=== PATIENT | male | born 1990 | race Caucasian/White ===

== ENCOUNTER 2024-11-24 09:39 | Emergency (ER) | payer MEDICAID ==
[~2024-11-24] VITALS: Ht 172.7 cm; Wt 83.2 kg
[2024-11-24 10:03] VITALS: BP 130/79; PULSE 76; O2SAT 98
[2024-11-24] MEDS ORDERED: CYCL-394 PO (10:27)
--- NOTE | 2024-11-24 10:28 | Physician Documentation ---
History of Present Illness ~ Chief Complaint: Back Pain Stated Complaint: BACK PAIN Time Seen by MD: 09:44 HPI 34-year-old male presents to the ED with a complaint of low back pain without injury. States his pain is worse in the morning and has sciatica down the right side. He has any numbness tingling saddle anesthesia fevers or weakness Day of Onset: Nov 24, 2024 Medication Reconciliation Allergies: Uncoded Allergies: PCN (Allergy, Unknown, 11/24/24) Scheduled Cyclobenzaprine HCl (Cyclobenzaprine HCl), 1 TAB PO Q8H Review of Systems All Other Systems at this time: Reviewed and Negative ROS As stated above in the HPI, otherwise all systems are reviewed and negative. Physical Exam Physical Exam Vital Signs: Temperature: 97.8, Source: Temporal, Heart Rate: 76, Respiratory Rate: 18, BP: 130/79, Pulse Oximetry: 98, Weight: 83.180 Physical Exam General: Alert, no apparent distress. Respiratory: Lungs clear, no respiratory distress. Cardiovascular: Regular rate and rhythm, no murmurs. back: Tender to lumbar region via palpation Neurologic: Oriented x4. Psychiatric: Normal mood and affect. Skin: Normal color, warm and dry. No edema, no ecchymosis. Progress Results/Orders Results/Orders Orders - RAMOS FERGUSON SHAPING MACHINE OPERATOR Lumbar Spine Limited (11/24/24 10:28) Completed Orders - RAMOS FERGUSON SHAPING MACHINE OPERATOR Ketorolac Trometh 30mg/Ml Vial (Toradol (11/24/24 10:25) Lumbar Spine Limited (11/24/24 10:28) Medications Received in ER Medications (Trade) Dose Ordered Sig/Lana Route PRN Reason Start Time Stop Time Status Last Admin Dose Admin (Toradol inj. 30mg/ml) 30 mg ONCE ONCE IM 11/24/24 10:25 11/24/24 10:37 DC 11/24/24 10:59 30 MG Vital Signs 11/24/24 11/24/24 11/24/24 10:03 10:59 11:10 Temp 97.8 97.8 Pulse 76 Resp 18 16 B/P (MAP) 130/79 Pulse Ox 98 Medical Decision Making Findings Patient does not present with any acute injury I do suspect lumbar strain. Ac knowledges homelessness and socioeconomic deficiencies. I think it is prudent to give him a Toradol shot and advised him to follow up with the [facility]" for potential referral to physical therapy He is neurologically intact no signs of red flag symptoms Not appreciate any signs of acute fracture in his x-ray Differential Dx:Considerations: Include: AAA, Aortic dissection, Appendicitis, Bowel obstruction, Cholelithiasis, Cholangitis, DJD, Fracture, Hepatitis, HNP, Musculoskeletal pain, Pancreatitis, Pyelonephritis, Renal infarction, Strain, Urinary obstruction, Urolithiasis, Urinary tract infection, Other Departure Disposition: HOME / SELF CARE / HOMELESS Impression: Primary Impression: Strain of lumbar region Condition: Stable Discharge Instructions: Lumbosacral Strain Additional Instructions: You continue to have persistent back pain I recommend following up with the [facility] they can assist you with a referral to physical therapy if need be Referrals: NO PRIMARY CARE PROVIDER (PCP) Prescriptions Cyclobenzaprine HCl (Cyclobenzaprine HCl) 10 Mg Tablet 1 TAB PO Q8H for muscle spasms for 10 Days, #30 TAB Prov: RAMOS FERGUSON NP 11/24/24 Signature Scribe Signature: v Attestation: Scribed for Ramos [employer] Printer by Ramos Ferguson - MARIBEL . 11/24/24 17:33 RAMOS FERGUSON NP Nov 24, 2024 10:28
[2024-11-24 10:59] VITALS: RESP 16
[2024-11-24] MEDS: ketorolac trometh 30MG/ML vial 30 MG/ML VIAL IM ONE (10:59)
--- NOTE | 2024-11-24 11:05 | RADIOLOGY REPORT ---
INDICATION: pain COMPARISON: None TECHNIQUE: 3 views of the lumbar spine were obtained. FINDINGS: The lumbar vertebral alignment is normal. The intervertebral disc spaces are well-maintained. No significant facet arthropathy is noted. No acute fracture, vertebral compression deformity or aggressive osseous lesions. The paravertebral soft tissues are grossly unremarkable. IMPRESSION: No acute fracture or subluxation.
[2024-11-24 11:10] VITALS: TEMP 97.8
== END 2024-11-24 11:12 | disposition home or self-care (01) ==
LOC: ER 09:42
DX: S39.012A Strain of muscle, fascia and tendon of lower back, initial encounter (principal); Z79.899 Other long term (current) drug therapy; X58.XXXA Exposure to other specified factors, initial encounter; Y93.89 Activity, other specified; Y92.89 Other specified places as the place of occurrence of the external cause; Y99.8 Other external cause status
CPT/HCPCS: 72100; 96372; 99283; J1885

== ENCOUNTER 2025-02-23 07:20 | Emergency (ER) | payer MEDICAID ==
[~2025-02-23] VITALS: Ht 172.7 cm; Wt 81.8 kg
[2025-02-23 07:23] VITALS: BP 139/100; PULSE 83; TEMP 97.2; O2SAT 99
--- NOTE | 2025-02-23 07:29 | Physician Documentation ---
History of Present Illness General Chief Complaint: Bite-insect Stated Complaint: INSECT BITE Time Seen by MD: 07:29 History of Present Illness Initial Comments Patient is a 34-year-old male states he has had redness swelling and purulent discharge from lesions on his left leg that he has had for about a week and a half. Patient denies any fevers or chills. The patient states he has had some purulent drainage and he has been soaking his leg intermittently with the hot water. Patient's symptoms are mild and persistent Medication Reconciliation Allergies: Coded Allergies: Penicillins (Verified Allergy, Intermediate, RASH, 02/23/25) Scheduled Cephalexin*Monohydrate* (Keflex*), 2 CAP PO BID Sulfamethoxazole/Trimethoprim (Septra Ds Tab), 1 TAB PO BID Past Medical History Past Medical History: No Pertinent History Review of Systems All Other Systems at this time: Reviewed and Negative Physical Exam Physical Exam Vital Signs: Temperature: 97.2, Source: Oral, Heart Rate: 83, Respiratory Rate: 18, BP: 139/100, Pulse Oximetry: 99, Weight: 81.800 Oxygen Flow Rate: 0 Physical Exam VITALS: Reviewed and as above. GENERAL: Alert, no apparent distress. HEENT: Normocephalic, atraumatic, PERRL, EOMI, dry mucosa, no erythema BACK: No CVA tenderness, or swelling MUSCULOSKELETAL: The patient has erythema to the mid anterior bunch and to the lateral left lower leg there is erythema over an area proximally 12 x 8 cm there was no significant areas of fluctuance there is some oozing pus over the lateral aspect of the lower leg SKIN: Warm and dry, no rash NEURO: Oriented x4, No motor or sensory deficit PSYCH: Normal mood and affect, no agitation Progress Results/Orders Results/Orders Completed Orders - FAROOQ PEREZ MD Cephalexin Capsule (Keflex Capsule) (02/23/25 07:45) Sulfamethox/Trimetho. Ds Tab (Septra Ds (02/23/25 07:45) Vital Signs 02/23/25 02/23/25 07:23 08:22 Temp 97.2 Pulse 83 Resp 18 16 B/P (MAP) 139/100 Pulse Ox 99 O2 Flow Rate 0 Medical Decision Making Additional information obtaine: old records Findings The patient with cellulitis and likely MRSA with some draining pus but no fluctuance on exam and several sores that have scabbed over on the lower extremity. The patient has been advised if he develops fluctuance or increased swelling to come back for incision and drainage he will be started on Keflex and Septra and the patient will be discharged. Prior hospitalizations has been reviewed the patient's pulse oximetry was interpreted as normal and adequate Differential Diagnosis abscess sepsis Departure Disposition: HOME / SELF CARE / HOMELESS Impression: Primary Impression: Cellulitis Qualified Codes: L03.116 - Cellulitis of left lower limb Discharge Instructions: Cellulitis, Adult Referrals: NO PRIMARY CARE PROVIDER (PCP) Prescriptions Sulfamethoxazole/Trimethoprim (Septra Ds Tab) 800 Mg/160 Mg Tablet 1 TAB PO BID, #14 TAB Prov: FAROOQ PEREZ MD 02/23/25 Cephalexin*Monohydrate* (Keflex*) 500 Mg Capsule 2 CAP PO BID, #28 CAP Prov: FAROOQ PEREZ MD 02/23/25 Signature Scribe Signature: no scribe Attestation: The note accurately reflects work and decisions made by me.Farooq Perez MD 02/25/25 11:35 FAROOQ PEREZ MD Feb 23, 2025 07:29
[2025-02-23] MEDS ORDERED: SULF-16 PO (07:44)
[2025-02-23] MEDS ORDERED: CEPH-585 PO (07:44)
[2025-02-23] MEDS: sulfamethoxazole/trimethoprim DS (800/160mg) tablet PO ONE (08:17)
[2025-02-23 08:22] VITALS: RESP 16
== END 2025-02-23 08:23 | disposition home or self-care (01) ==
LOC: ER 07:20
DX: L03.116 Cellulitis of left lower limb (principal); Z88.0 Allergy status to penicillin; Z79.899 Other long term (current) drug therapy
CPT/HCPCS: 99283